=== PATIENT | male | born 1995 | race Caucasian/White ===

== ENCOUNTER → 2016-09-27 | Outpatient (CLI) | payer OTHER ==
--- NOTE | 2016-09-27 09:49 | DI ---
Indication: ITS.REASON: S89.91XA PROCEDURE: MRI KNEE RIGHT W/O CONTRAST: Encounter: Initial Comparison: None Technique: Multiplanar multisequence MR imaging of the right knee was performed without contrast. Findings: The lateral meniscus shows a tiny area of T2 hyperintensity within the central body seen on sagittal image #25. This is potentially confirmed on coronal proton-density fat-saturated image #12. Medial meniscus is normal. The ACL and PCL are intact. The MCL and lateral collateral ligament complex are normal. The extensor mechanism is normal. No acute fracture. Small area of edema in the anterior medial femoral condyle. The cartilage of the medial, lateral and patellofemoral compartments is maintained. No joint effusion or Dickson's cyst. Muscular signal intensity is normal. Impression: 1. Evidence for a tiny pinpoint radial tear of the body of the lateral meniscus. No ligamentous injury seen. 2. Small bone contusion in the medial femoral condyle. .
== END ==
LOC: IMA 06:35
PROVIDERS: ATTEND Family Medicine Sports Medicine
DX: S80.01XA Contusion of right knee, initial encounter (principal); S83.281A Other tear of lateral meniscus, current injury, right knee, initial encounter; X58.XXXA Exposure to other specified factors, initial encounter; Y93.61 Activity, american tackle football; Y92.321 Football field as the place of occurrence of the external cause; Y99.8 Other external cause status